=== PATIENT | female | born 1990 | race Hispanic/Latino ===

== ENCOUNTER 2024-08-15 17:36 | Emergency (ER) | payer SELFPAY ==
[~2024-08-15] VITALS: Ht 162.6 cm; Wt 93.4 kg
[2024-08-15 17:59] VITALS: BP 133/81; PULSE 88; RESP 18; TEMP 98.6; O2SAT 100
--- NOTE | 2024-08-15 18:00 | NUR ---
PATIENT DENIES HAVING HAD SEIZURE ACTIVITY PRIOR TO ARRIVAL. C/O HEADACHE. ALERT AND ORIENTED X4.
--- NOTE | 2024-08-15 18:06 | ERN ---
General Chief Complaint: Seizure Stated Complaint: POSS SEIZURE Time Seen by MD: 17:39 Source: patient History of Present Illness Initial Comments Patient is a 33-year-old female coming in to be evaluated. She states that she was recently discharged from another hospital day ago and states they gave her Vimpat for her seizures. She states that they did not in former as to how long to be out of work. States he does not have a doctor in his not been able to work so hoping she could get some time off. Allergies: Coded Allergies: No Known Drug Allergies (Unverified Allergy, Unknown, 08/15/24) Past Medical History Past Medical History: Anemia, Anxiety, Depression, Seizure Past Surgical History: None ROS Dictation CONSTITUTIONAL: No chills, no fever, no weakness, no diaphoresis, no malaise. HEAD/FACE: No signs of trauma. EENT: No eye pain, no blurred vision, no tearing, no double vision, no ear pain, no ear discharge, no nose pain, no nasal congestion, no throat pain, no throat swelling, no mouth pain. RESPIRATORY: No cough, no orthopnea, no SOB, no stridor, no wheezing. CARDIOVASCULAR: No chest pain, no edema, no palpitations, no syncope. GASTROINTESTINAL/ABDOMINAL: No abdominal pain, no constipation, no diarrhea, no nausea, no vomiting. GENITOURINARY: No abnormal discharge, no dysuria, no frequent urination, no hematuria. No complaints of pain in the genitals. MUSCULOSKELETAL: No back pain, no gout, no joint pain, no joint swelling, no muscle pain, no muscle stiffness, no neck pain. INTEGUMENTARY: No change in color, no change in hair/nails, no dryness, no lesion, no lumps, no rash. NEUROLOGICAL/PSYCH: No anxiety, not depressed, no emotional problem, no headache, no numbness, no pre-existing deficit, no history of seizures, no tremors, no weakness. HEMATOLOGIC/LYMPHATIC: Not anemic, no history of blood clots, no apparent bleeding, no bruising, glands not swollen. All Systems Negative, Except as Noted. Physical Exam Physical Exam Dictation VITAL SIGNS: Reviewed. GENERAL APPEARANCE: Alert, oriented x3, no acute distress, obese. HEAD AND FACE: Non-traumatic. EYES: PERRL, pink conjunctivas, eyelid no trauma, anterior chamber clear. EARS: Pinnas intact and no signs of trauma or erythema. Ear canals clear and no discharge. TMs no erythema. NOSE: No discharge, no bleeding. OROPHARYNX: Mouth normal, teeth no caries, tongue pink. Pharynx clear, no erythema. Tonsils no exudates, no abscesses noted. Mucous membrane moist. NECK: Supple, non-tender, no thyromegaly, no masses, no JVD, no bruits. BREAST: Deferred. CHEST: No tenderness, no crepitus, no paradoxical movement, no retractions. LUNGS: Clear, well-ventilated, symmetric, no rales, no wheezing, no rhonchi, no stridor, good breath sounds bilaterally. HEART: Regular rate, regular rhythm, no murmur, no gallops. VASCULAR: No peripheral edema. ABDOMEN: Soft, positive bowel sounds, nondistended, no guarding, nontender, no rebound, no masses no hepatomegaly, no splenomegaly, no Fonseca's sign, no hernias. RECTAL: Deferred. GENITAL: Deferred. NEUROLOGICAL: Normal speech, gross motor function intact, gross sensory function intact. MUSCULOSKELETAL: Neck nontender, full range of motion, back nontender, full range of motion. EXTREMITIES: Nontender, full range of motion. SKIN: Color pink, dry, no turgor, no rash, no lacerations, no abrasions, no contusions. LYMPHATICS: Deferred. Results Laboratory and Microbiology Labs Reviewed?: Yes MDM MDM: Differential diagnosis: History of seizure, wellness exam, Patient is a 33-year-old female coming in to be evaluated states that she was discharged from another hospital with a diagnosis of seizures she is given Vimpat several imaging studies were performed. Patient states he had she did not know how long to be out of work was for guidance. I had a advised her that we will referred to of the neurologist so he can continue monitoring her. Patient will be discharged in stable condition. ED Course Vital Signs Date Time Temp Pulse Resp B/P (MAP) Pulse Ox O2 Delivery O2 Flow Rate FiO2 08/15/24 17:39 99.0 98 18 143/87 98 Room Air 0 DX & DISP Disposition: Discharge Departure Impression: Primary Impression: Wellness examination Condition: Stable Referrals: SELF,REFERRAL (PCP) CLIVE GARCIA MD, JOSE G MD Time of Disposition: 18:02 LAURA HOLLOWAY MD Aug 15, 2024 18:06
--- NOTE | 2024-08-15 18:11 | NUR ---
DISCHARGED 1811 HOWEVER UNABLE TO DEPART ON [facility] DUE TO THIRD [employer] ON CHART
== END 2024-08-15 18:12 | disposition home or self-care (01) ==
LOC: EDH 17:36
DX: Z04.89 Encounter for examination and observation for other specified reasons (principal)
CPT/HCPCS: 99281